=== PATIENT | male | born 1945 | race Caucasian/White ===

== ENCOUNTER 2019-07-26 16:54 | Inpatient (IN) ==
[2019-07-26 17:37] LABS: INR 1.4; Prothrombin Time 16.2 Seconds (9.4-12.1)
[2019-07-26 17:40] LABS: Activated Partial Thrombo Time 36.6 Seconds (26.0-36.0)
[2019-07-26] MEDS ORDERED: *HR* Heparin 5,000 UNIT/ML VIAL IVP ONE (17:57)
[2019-07-26] MEDS ORDERED: *HR* Heparin 5,000 UNIT/ML VIAL IVP PRN ×2 (17:57)
[2019-07-26] MEDS ORDERED: Heparin 25,000 UNIT/250 ML D5W 25,000 UNIT/250 ML IV.SOLN IVC SCH (18:00)
[2019-07-26 18:15] LABS: Basophils % 0.5 %; Calcium 8.9 mg/dL (8.6-10.3); Eosinophils # 0.3 K/mcL (0.0-0.6); Eosinophils % 3.8 %; Hemoglobin 12.3 g/dL (12.9-16.9); Immature Granulocytes % 0.5 % (0-4); Lymphocytes # 1.7 K/mcL (0.6-4.6); Lymphocytes % 21.2 %; Mean Corpuscular HGB Conc 32.4 g/dL (31.6-35.5); Mean Corpuscular Hemoglobin 29.6 pg (28.0-33.3); Mean Corpuscular Volume 91.6 fL (83.0-100.0); Monocytes # 0.9 K/mcL (0.0-1.3); Monocytes % 11.3 %; Platelet Count 180 K/mcL (140-400); Potassium 4.3 mEq/L (3.5-5.1); Red Blood Count 4.15 M/mcL (4.19-5.50); Red Cell Distribution Width 13.7 % (11.5-14.5); Segmented Neutrophils % 62.7 %; Troponin I 0.16 ng/mL (< 0.04)
[2019-07-26] MEDS: Heparin 25,000 UNIT/250 ML D5W 25,000 UNIT/250 ML IV.SOLN IVC SCH (18:24)
[2019-07-26] MEDS ORDERED: Ondansetron 4 MG/2 ML VIAL IVP PRN (18:36)
[2019-07-26] MEDS ORDERED: Acetaminophen 325 MG TABLET PO PRN (18:36)
[2019-07-26] MEDS ORDERED: Dextrose Gel 15 GM/37.5 ML TUBE PO PRN ×2 (18:54)
[2019-07-26] MEDS ORDERED: *HR* Dextrose 50 % in Water (Syg) 50 ML SYRINGE IVP PRN (18:54)
[2019-07-26] MEDS ORDERED: D5% in Water 1,000 ML IVC PRN (18:54)
[2019-07-26] MEDS ORDERED: NON-FORMULARY MEDICATION 1 EACH EACH (Insulin Glargine [Lantus] 50 UNIT) IJ SCH (21:00)
[2019-07-26] MEDS: Insulin LISPRO 300 UNITS/3 ML VIAL SQ SCH (21:42)
[2019-07-26] MEDS: Insulin DETEMIR 100 UNIT/ML X5UNITS SQ SCH (21:44)
[2019-07-26] MEDS: Baclofen 10 MG TABLET PO SCH (22:33)
[2019-07-26] MEDS: traZODone 50 MG TABLET PO PRN (22:38)
[2019-07-26] MEDS: Melatonin 3 MG TABLET PO PRN (22:39)
[2019-07-27 01:01] LABS: Hematocrit 39.1 % (37.5-50.1); Hemoglobin 12.7 g/dL (12.9-16.9); Mean Corpuscular HGB Conc 32.5 g/dL (31.6-35.5); Mean Corpuscular Hemoglobin 29.7 pg (28.0-33.3); Mean Corpuscular Volume 91.4 fL (83.0-100.0); Mean Platelet Volume 12.2 fL (9.4-12.4); Platelet Count 167 K/mcL (140-400); Red Blood Count 4.28 M/mcL (4.19-5.50); Red Cell Distribution Width 13.6 % (11.5-14.5); White Blood Count 7.9 K/mcL (4.3-11.1)
[2019-07-27 01:22] LABS: Calcium 8.7 mg/dL (8.6-10.3); Magnesium 1.7 mg/dL (1.6-2.6); Potassium 3.8 mEq/L (3.5-5.1)
[2019-07-27 01:49] LABS: Troponin I 0.15 ng/mL (< 0.04)
[2019-07-27 08:33] LABS: Estimated Average Glucose 154 mg/dl
[2019-07-27] MEDS ORDERED: Valsartan 160 MG TABLET PO SCH (09:00)
[2019-07-27] MEDS ORDERED: Metoprolol XL (24 HR) Succ 25 MG TAB.ER.24H PO SCH (09:00)
[2019-07-27] MEDS: Insulin LISPRO 300 UNITS/3 ML VIAL SQ SCH ×4 (09:15→20:04)
[2019-07-27] MEDS: Tiotropium 18 MCG inhalation IH SCH (11:37)
[2019-07-27] MEDS: Venlafaxine XR (24 HR) 150 MG CAP.ER.24H PO SCH (12:06)
[2019-07-27] MEDS: Baclofen 10 MG TABLET PO SCH ×2 (12:06→20:07)
[2019-07-27] MEDS ORDERED: Metoprolol XL (24 HR) Succ 25 MG TAB.ER.24H PO ONE (12:28)
[2019-07-27] MEDS: Nitroglycerin 0.4 MG TAB.SUBL SL PRN ×2 (15:16→15:21)
[2019-07-27] MEDS: Insulin DETEMIR 100 UNIT/ML X5UNITS SQ SCH (20:04)
[2019-07-27] MEDS: Heparin 25,000 UNIT/250 ML D5W 25,000 UNIT/250 ML IV.SOLN IVC SCH (20:07)
[2019-07-27] MEDS: traZODone 50 MG TABLET PO PRN (20:07)
[2019-07-27] MEDS: Melatonin 3 MG TABLET PO PRN (20:07)
[2019-07-28] MEDS: Nitroglycerin 0.4 MG TAB.SUBL SL PRN (04:06)
[2019-07-28] MEDS: Insulin LISPRO 300 UNITS/3 ML VIAL SQ SCH ×3 (08:29→16:40)
[2019-07-28] MEDS ORDERED: Metoprolol XL (24 HR) Succ 25 MG TAB.ER.24H PO SCH (09:00)
[2019-07-28 09:11] LABS: Calcium 8.7 mg/dL (8.6-10.3); Potassium 4.1 mEq/L (3.5-5.1)
[2019-07-28] MEDS: Tiotropium 18 MCG inhalation IH SCH (11:09)
[2019-07-28] MEDS: Venlafaxine XR (24 HR) 150 MG CAP.ER.24H PO SCH (14:12)
[2019-07-28] MEDS: Baclofen 10 MG TABLET PO SCH (14:13)
[2019-07-28 19:40] VITALS: BP 151/72
[2019-07-28] MEDS ORDERED: Apixaban 5 MG TABLET PO SCH (21:00)
== END 2019-07-28 22:06 | disposition home or self-care (01) | DRG 281 ==
LOC: SUATTDRO → EMEROOARM 16:54 → 3BNU 16:54 → SUATTDRO 20:04 → OBSVTOIN 20:04 → 3BNU 20:42
PROVIDERS: ADMIT Internal Medicine; ATTEND Internal Medicine